=== PATIENT | female | born 1975 | race Caucasian/White ===

== ENCOUNTER → 2024-03-12 06:38 | Day surgery (SDC) | payer OTHER, SELFPAY ==
[2024-03-12 07:37] LABS: Glucose - Point of Care 267 mg/dl (70-99)
== END ==
LOC: GI 06:38
PROVIDERS: ATTENDING PHYSICIAN Internal Medicine Gastroenterology
DX: Z09 Encounter for follow-up examination after completed treatment for conditions other than malignant neoplasm (principal); D12.4 Benign neoplasm of descending colon; D12.5 Benign neoplasm of sigmoid colon; D12.3 Benign neoplasm of transverse colon; Z98.0 Intestinal bypass and anastomosis status; K50.80 Crohn's disease of both small and large intestine without complications; Z87.19 Personal history of other diseases of the digestive system
CPT/HCPCS: 45385; 45380; 88305; 82962